=== PATIENT | female | born 1990 | race African-American/Black ===

== ENCOUNTER 2017-02-06 10:33 | Emergency (ER) | payer SELFPAY ==
[~2017-02-06] VITALS: Ht 157.5 cm; Wt 91.0 kg
[2017-02-06 10:51] VITALS: BP 180/95
== END 2017-02-06 12:59 | disposition left against medical advice (07) ==
LOC: ER 11:45
DX: R10.9 Unspecified abdominal pain (principal); F91.8 Other conduct disorders; F12.90 Cannabis use, unspecified, uncomplicated; F17.210 Nicotine dependence, cigarettes, uncomplicated; Z53.21 Procedure and treatment not carried out due to patient leaving prior to being seen by health care provider

== ENCOUNTER 2017-02-06 13:02 | Emergency (ER) | payer SELFPAY ==
[~2017-02-06] VITALS: Ht 157.5 cm; Wt 91.0 kg
[2017-02-06 13:42] LABS: CLARITY URINE CLOUDY (CLEAR); COLOR URINE YELLOW (YELLOW); GLUCOSE URINE 3+ (NEGATIVE); KETONES URINE NEGATIVE (NEGATIVE); LEUKOCYTE ESTERASE URINE 2+ (NEGATIVE); NITRITE URINE NEGATIVE (NEGATIVE); OCCULT BLOOD URINE 1+ (NEGATIVE); PROTEIN URINE 1+ (NEGATIVE); SPECIFIC GRAVITY URINE 1.017 (1.005-1.030); UROBILINOGEN URINE 0.2 E.U./dL (0.2-1.0)
[2017-02-06 14:04] LABS: CHLORIDE 105 mEq/L (98-107)
[2017-02-06 14:06] LABS: INR 1.1; PROTHROMBIN TIME 11.1 sec (9.4-11.6)
[2017-02-06 14:08] LABS: HEMATOCRIT. 36.4 % (36.0-48.0); HEMOGLOBIN. 12.5 g/dL (12.0-16.0); MEAN CORPUSCULAR HEMOGLOBIN 29.6 pg (28.0-32.0); MEAN CORPUSCULAR VOLUME 86.1 fL (81.0-99.0); RED BLOOD CELL COUNT 4.23 mill/uL (4.2-5.4); RED CELL DISTRIBUTION WIDTH 16.4 % (11.6-14.6)
[2017-02-06 14:13] LABS: CARBON DIOXIDE 21 mEq/L (21-32)
[2017-02-06 14:58] LABS: PLATELET ESTIMATE NORMAL
[2017-02-06] MEDS ORDERED: KETOROLAC 30MG/ML VIAL IV ONE (15:00)
[2017-02-06 15:03] LABS: PLATELET 299 x1000/uL (130-400)
[2017-02-06] MEDS ORDERED: CEFTRIAXONE 1 G PREMIX 50 ML IV ONE (15:45)
[2017-02-06] MEDS ORDERED: ACETAMINOPHEN 500MG TABLET PO ONE (15:45)
[2017-02-06] MEDS ORDERED: SODIUM CHLORIDE 0.9% 1,000 ML IV ONE (15:45)
[2017-02-06 19:22] VITALS: BP 132/85
== END 2017-02-06 20:47 | disposition home or self-care (01) ==
LOC: ER 14:02
DX: N12 Tubulo-interstitial nephritis, not specified as acute or chronic (principal); R03.0 Elevated blood-pressure reading, without diagnosis of hypertension; F12.90 Cannabis use, unspecified, uncomplicated
CPT/HCPCS: 36415; 80053; 81001; 81025; 83690; 85025; 85610; 96365; 96366; 96375; 99285; J0696; J1885; J7030